=== PATIENT | female | born 1965 | race Caucasian/White ===

== ENCOUNTER → 2016-05-12 | Outpatient (CLI) | payer OTHER ==
[~2016-05-12] MED LIST: ALPR1TAB3 PO; FLUO40CA8 PO; HYDR-5688 PO; LEVO125T4 PO; LOSA50TA6 PO; TRAM-10 PO
--- NOTE | 2016-05-12 14:23 | DIAGNOSTIC IMAGING REPORT ---
MRI OF THE RIGHT KNEE WITHOUT CONTRAST CLINICAL HISTORY: Right knee pain. Evaluate for meniscal tear. COMPARISON STUDY: None TECHNIQUE: Utilizing a 1.5 Roxann magnet and dedicated coil, multiplanar, multiecho imaging of the right knee was performed without intravenous or intraarticular contrast. FINDINGS: Alignment of the right knee is anatomic. A moderate size joint effusion is noted with a small multiloculated popliteal cyst. There is no marrow replacement. No fracture is identified. The cruciate and collateral ligaments are intact. There is a oblique tear of the posterior horn of the medial meniscus. There is an additional suspected tear of the body of the medial meniscus along the tibial articular surface. There is abnormal signal within the anterior horn of the lateral meniscus with suspected extension to articular surface. This could reflect a lateral meniscal tear. There is mild chondrosis within the lateral compartment and moderate chondrosis within the patellofemoral compartment. This is most evident along the patellar cartilage. IMPRESSION: 1. Oblique tear of the posterior horn of the medial meniscus and an additional tear within the body of the medial meniscus. 2. Suspected tear of the anterior horn of the lateral meniscus. 3. Moderate chondrosis within the patellofemoral compartment and mild chondrosis within the lateral compartment. 4. Moderate size right knee joint effusion and small popliteal cyst. Electronically signed by: Shakir Hobbs M.D. 05/12/2016 2:22 PM Dictated Date/Time: 05/12/2016 2:15 PM
== END | disposition home or self-care (01) ==
LOC: C.MRIBC 13:00
PROVIDERS: ATTEND Orthopaedic Surgery
DX: S83.241A Other tear of medial meniscus, current injury, right knee, initial encounter (principal); X58.XXXA Exposure to other specified factors, initial encounter

== ENCOUNTER → 2016-06-09 | Outpatient (CLI) | payer OTHER | END | disposition home or self-care (01) | LOC: C.CPL 15:44 | PROVIDERS: ATTEND Orthopaedic Surgery | DX: Z01.810 Encounter for preprocedural cardiovascular examination (principal); Z01.812 Encounter for preprocedural laboratory examination; S83.241A Other tear of medial meniscus, current injury, right knee, initial encounter; X58.XXXA Exposure to other specified factors, initial encounter ==

== ENCOUNTER → 2016-06-17 | Day surgery (SDC) | payer OTHER ==
[2016-06-06 13:31] VITALS: Ht 152.4 cm; Wt 74.1 kg
[~2016-06-17] VITALS: Ht 152.4 cm; Wt 74.1 kg
[~2016-06-17] MED LIST changes: +ATROPINE SULFATE 0.1 MG/ML 5ML SYR IV PRN; +BUPIVACAINE 0.5 % 5 MG/1 ML PF 10ML VIAL ONE; +CEFAZOLIN 1000MG/55 ML D5W IV SCH; +DEXAMETHASONE SOD INJ 4 MG/ML VIAL ONE; +EpINEphrine INJ 1MG/ML AMP 1 MG/ML AMP ONE; +FENTANYL CITRATE INJ 50 MCG/1 ML 2 ML VIAL IV PRN; +FENTANYL CITRATE INJ 50 MCG/1 ML 2 ML VIAL ONE; +KETOROLAC TROMETHAMINE 30 MG/ML VIAL IV. PRN; +KETOROLAC TROMETHAMINE 30 MG/ML VIAL ONE; +LABETALOL HCL IV 5 MG/ML 20ML IV PRN; +LACTATED RINGER'S 1000ML 1,000 ML IV SCH; -LEVO125T4 PO; +LEVO125T5 PO; +LIDOCAINE HCL 2% 2 ML VIAL (20MG/ML) ONE; +MIDAZOLAM HCL 1 MG/ML 2ML VIAL ONE; +ONDANSETRON INJ 2 MG/ML 2 ML VIAL IV PRN; +ONDANSETRON INJ 2 MG/ML 2 ML VIAL ONE; +OXYCODONE/ACETAMINOPHEN 5-325 TAB ONE; +OXYCODONE/ACETAMINOPHEN 5-325 TAB PO PRN; +PROPOFOL IV EMULSION 10 MG/ML 20 ML VIAL IV ONE; +ROPIVACAINE 0.5% 5 MG/ML 30 ML VIAL ONE; +SODIUM CHLORIDE 0.9% 1000ML 1,000 ML IV SCH
--- NOTE | 2016-06-17 08:41 | History & Physical Bridge - SC ---
H&P Re-Evaluation Bridge Note: I have examined the patient, reviewed the History & Physical and in the interval since the performance of the History & Physical I have noted the following changes of clinical significance: No changes noted
--- NOTE | 2016-06-17 09:42 | [facility] Post Operative Brief Note ---
Immediate Operative Summary Operative Date Jun 17, 2016. Pre-Operative Diagnosis Right Knee Medial Meniscal Tear Post-Operative Diagnosis Same Procedure(s) Performed Right Knee Arthroscopy, Partial Medial Meniscectomy, Chondroplasty of the patella Surgeon Dr. Owens Personnel Adviser Surgeon(s) Pradeep Kevin PA-C Estimated Blood Loss None Findings ABOVE Specimens None Drains NONE Anesthesia LMA Complication(s) None Disposition Recovery Room / PACU
--- NOTE | 2016-06-17 09:52 | Discharge Instructions-SurgCtr ---
Discharge Instructions Date of Service Jun 17, 2016. Visit Reason for Visit: Right Knee Medial Meniscus Tear Discharge Discharge Diagnosis / Problem: SAME ABOVE Discharge Goals Goal(s): Decrease discomfort, Improve function Activity Recommendations Activity Limitations: as noted below Lifting Limitations: gradually increase as tolerated Exercise/Sports Limitations: until after follow-up appointment Shower/Bathe: tomorrow Weightbearing Status: Right weightbearing (as tolerated) Anesthesia . Post Anesthesia Instructions: If you have had General Anesthesia or IV Sedation: * Do not drive today. * Resume driving when surgeon permits. * Do not make important decisions or sign legal documents today. * Call surgeon for: 1. Temperature elevations greater than 101 degrees F. 2. Uncontrollable pain. 3. Excessive bleeding. 4. Persistent nausea and vomiting. 5. Medication intolerance (nausea, vomiting or rash). * For nausea and vomiting use only clear liquids such as: tea, soda, bouillon until nausea subsides, then gradually increase diet as tolerated. * If you have any concerns or questions, call your surgeon's office. If physician is unavailable and it is an emergency, call 911 or go to the nearest emergency room. . Diet Recommendations Home Diet: resume previous diet Procedures Procedures Performed: Right Knee Arthroscopy, Partial Medial Meniscectomy, Chondroplasty of the patella Pending Studies Studies pending at discharge: no Medical Emergencies . Who to Call and When: Medical Emergencies: If at any time you feel your situation is an emergency, please call 911 immediately. . Non-Emergent Contact Non-Emergency issues call your: Primary Care Provider . . "Provider Documentation" section prepared by Axel Kevin.
--- NOTE | 2016-06-17 10:09 | OPERATIVE REPORT ---
DATE OF OPERATION: 06/17/2016 PREOPERATIVE DIAGNOSIS: Medial meniscus tear, right knee. POSTOPERATIVE DIAGNOSES: 1. Flap tear posterior horn of the medial meniscus. 2. Fraying of the anterior horn of the lateral meniscus. 3. Grade 2-3 articular changes underneath surface of the patella. PROCEDURE: 1. Right knee arthroscopy. 2. Partial medial meniscectomy. 3. Chondroplasty undersurface of patella. SURGEON: Dr. Owens. PRE CODER: Axel Kevin PA-C. ANESTHESIOLOGIST: Dr. Purvis. ANESTHESIA: LMA. DRAINS: None. COMPLICATIONS: None. CONDITION: The patient tolerated the procedure well and returned to the recovery room in apparent satisfactory condition. INDICATIONS FOR SURGERY: Maranda is a 50-year-old female who has had increasing pain and discomfort of her knee consistent with medial meniscus tear per history, examination and MRI. Went over treatment options and elected to go ahead and proceed with knee arthroscopy. The procedure, expected outcomes and side effects were all explained in detail. OPERATION AND FINDINGS: PROCEDURE: The patient was taken to the OR at which time she was placed supine on the operating table and put to sleep by anesthesia department. Examination of right knee was performed. Ligamentous hackett stable. Went ahead and prepped and draped in usual sterile fashion. We began arthroscopic examination in the anteromedial and anterolateral portals. We found a flap tear of the posterior horn of the medial meniscus. We came in with upbiting scissors and full range resector and trimmed it back to a stable rim. The articular surface was in good shape. ACL was fine. There was fraying of the anterior horn of the lateral meniscus. I came in and did light debridement. It did not have to do full meniscectomy there, just mostly took away some tissue that was fibrillated in this area. The articular surface and remaining part of the meniscus was in good shape. The patellofemoral joint, we found a erosion of the posterior aspect of the patellar surface, grade 3 almost like crabmeat appearance. We came in with resector and smoothed it down. There was some synovitis in the knee joint, we shaved that also. The knee then was copiously irrigated. All cannulas were removed. Portals closed with 4-0 nylon sutures. 30 mL of ropivacaine, 10 mg of Toradol, 1 mL epinephrine was placed in the knee joint. Placed a sterile dressing of Xeroform, 4 x 4, ABD, Sof-Rol, and Ahsan bandage and returned back to recovery room in apparent satisfactory condition. SURGICAL FINDINGS: 1. Flap tear posterior horn of the medial meniscus. 2. Fraying to the anterior horn of the lateral meniscus. 3. Grade 2-3 articular changes underneath surface of the patella. I attest to the content of the Intraoperative Record and any orders documented therein. Any exceptio ns are noted below.
[2016-06-17 10:42] VITALS: TEMP 36.6
--- NOTE | 2016-06-17 11:16 | Anesthesia Progress Nt - [facility] ---
Anesthesia Post Op Note Date & Time Jun 17, 2016 at 11:16 Vital Signs Pain Intensity: 4.0 Vital Signs Past 12 Hours Date Time Temp Pulse Resp B/P Pulse Ox O2 Delivery O2 Flow Rate FiO2 06/17/16 10:42 36.6 72 16 152/86 98 Room Air 06/17/16 10:30 117/91 06/17/16 10:29 71 21 97 06/17/16 10:29 69 21 06/17/16 10:25 112/70 06/17/16 10:25 37.0 98 Room Air 06/17/16 10:24 63 17 06/17/16 10:24 64 17 94 06/17/16 10:20 122/75 06/17/16 10:19 68 13 96 06/17/16 10:19 68 13 06/17/16 10:15 116/75 06/17/16 10:14 75 14 06/17/16 10:14 74 14 94 06/17/16 10:10 118/75 06/17/16 10:09 77 06/17/16 10:09 77 95 06/17/16 10:05 134/87 06/17/16 10:04 78 21 06/17/16 10:04 79 21 100 06/17/16 10:00 137/78 06/17/16 09:59 86 06/17/16 09:59 86 98 06/17/16 09:56 133/75 06/17/16 09:54 79 19 06/17/16 09:54 78 19 97 06/17/16 09:51 144/92 06/17/16 09:50 36.3 87 16 144/92 93 Mask 6 06/17/16 08:44 36.7 68 16 127/90 95 Room Air Notes Mental Status: alert / awake / arousable, participated in evaluation Pt Amnestic to Procedure: Yes Nausea / Vomiting: adequately controlled Pain: adequately controlled Airway Patency, RR, SpO2: stable & adequate BP & HR: stable & adequate Hydration State: stable & adequate Anesthetic Complications: no major complications apparent
[2016-06-17 11:17] VITALS: BP 146/74; PULSE 78; O2SAT 97
--- NOTE | 2016-06-18 09:59 | EDITING REQUIRED CODING QUERY ---
MENISCUS TEAR To promote full compliance with coding requirements relating to patient care physician participation is requested in all cases of manager regional uncertainty. Please assist us with the question(s) below: Please specify the type of Meniscus Tear by placing an "X" within the parenthesis (). If other please document type. ( x) Current Injury ( ) Old Injury ( ) Other: (Please Specify) Thank you Nay Coon
== END | disposition home or self-care (01) ==
LOC: X.SURG 08:31
PROVIDERS: ATTEND Orthopaedic Surgery
DX: S83.241A Other tear of medial meniscus, current injury, right knee, initial encounter (principal); M23.341 Other meniscus derangements, anterior horn of lateral meniscus, right knee; M24.10 Other articular cartilage disorders, unspecified site; X58.XXXA Exposure to other specified factors, initial encounter; I10 Essential (primary) hypertension; Z90.710 Acquired absence of both cervix and uterus; Z98.890 Other specified postprocedural states; E03.9 Hypothyroidism, unspecified; Z79.899 Other long term (current) drug therapy; Z68.32 Body mass index [BMI] 32.0-32.9, adult

== ENCOUNTER 2016-06-27 13:11 | Emergency (ER) | payer OTHER ==
[~2016-06-27] VITALS: Ht 152.4 cm; Wt 80.0 kg
[~2016-06-27 13:11] MED LIST changes: -ALPR1TAB3 PO; -ATROPINE SULFATE 0.1 MG/ML 5ML SYR IV PRN; -BUPIVACAINE 0.5 % 5 MG/1 ML PF 10ML VIAL ONE; -CEFAZOLIN 1000MG/55 ML D5W IV SCH; -DEXAMETHASONE SOD INJ 4 MG/ML VIAL ONE; -EpINEphrine INJ 1MG/ML AMP 1 MG/ML AMP ONE; -FENTANYL CITRATE INJ 50 MCG/1 ML 2 ML VIAL IV PRN; -FENTANYL CITRATE INJ 50 MCG/1 ML 2 ML VIAL ONE; -HYDR-5688 PO; -KETOROLAC TROMETHAMINE 30 MG/ML VIAL IV. PRN; -KETOROLAC TROMETHAMINE 30 MG/ML VIAL ONE; -LABETALOL HCL IV 5 MG/ML 20ML IV PRN; -LACTATED RINGER'S 1000ML 1,000 ML IV SCH; -LIDOCAINE HCL 2% 2 ML VIAL (20MG/ML) ONE; -MIDAZOLAM HCL 1 MG/ML 2ML VIAL ONE; -ONDANSETRON INJ 2 MG/ML 2 ML VIAL IV PRN; -ONDANSETRON INJ 2 MG/ML 2 ML VIAL ONE; -OXYCODONE/ACETAMINOPHEN 5-325 TAB ONE; -OXYCODONE/ACETAMINOPHEN 5-325 TAB PO PRN; -PROPOFOL IV EMULSION 10 MG/ML 20 ML VIAL IV ONE; -ROPIVACAINE 0.5% 5 MG/ML 30 ML VIAL ONE; -SODIUM CHLORIDE 0.9% 1000ML 1,000 ML IV SCH
[2016-06-27 13:17] VITALS: TEMP 36.7; O2SAT 99; Ht 152.4 cm; Wt 80.0 kg
[2016-06-27] MEDS ORDERED: ONDANSETRON 4MG OD TAB PO ONE (14:00)
[2016-06-27] MEDS ORDERED: MoRPHine SULFATE 10 MG/ML CARP/VIAL IM STA (14:00)
[2016-06-27] MEDS ORDERED: ALPR1TAB3 PO (14:08)
[2016-06-27 14:10] VITALS: BP 116/74; PULSE 70
--- NOTE | 2016-06-27 15:07 | EMERGENCY ROOM VISIT NOTE ---
History First contact with patient: 13:30 Chief Complaint: KNEEPAIN Stated Complaint: ACUTE KNEE PAIN History of Present Illness The patient is a 51 year old female who presents to the Emergency Room with complaints of persistent right knee pain after having a right knee arthroscopy performed last Thursday, or 10 days ago, by Dr. Owens. The patient reports that she was initially provided a prescription for hydrocodone. When she ran out of her medication and had persistent pain, she was then prescribed Ultram. The patient reports that the Ultram is not helping. She denies any increasing swelling, bruising or redness around the knee, fight or leg. Her pain is only worsened with movement or ambulation. She does have crutches at home, but has not been using them all the time. The patient reports that she is upset with Dr. Owens, and has filed a complaint because he is not adequately managing her pain. When asked if she has had any other recent prescription pain medications , she denies. The patient reports that she does have a history of chronic abdominal/pelvic pain secondary to adhesions and endometriosis, and is also under the management of Dr. Julio, ASSOCIATE PROFESSOR OF THEOLOGY at [facility]. The patient reports that she usually receives prescriptions from his office as well , but does not have any current medications until she follows up with them next week. The patient denies any current pelvic pain, hip pain or back pain. She rates her discomfort a 10 out of 10. Review of Systems 10 system review was performed and was negative except for pertinent positives and negatives as indicated in history of present illness Past Medical/Surgical History Medical Problems: (1) Abdominal pain in female patient (2) Alcohol abuse (3) Alcohol abuse (4) Anxiety (5) Clostridium difficile infection (6) Constipation (7) Depression (8) Hematochezia (9) History of - tubal ligation (10) Hyperthyroidism (11) Hypothyroidism (12) Hysterectomy (13) Laceration of toe of left foot (14) Mood disorder (15) Peritoneal adhesion (16) Plantar fasciitis Surgical Problems: (1) H/O section (2) H/O foot surgery (3) H/O: hysterectomy Social History Problems: (1) Alcohol abuse Family History FH: cancer FH: gallbladder disease Social History Smoking Status: Current Some Day Smoker Alcohol Use: occasionally Drug Use: none Marital Status: single Housing Status: lives alone Occupation Status: employed Current/Historical Medications Scheduled Alprazolam (Xanax), 1 MG PO UD Fluoxetine Hcl (Prozac), 2 CAP PO QAM Levothyroxine Sodium (Levothyroxine Sodium), 2 TAB PO QAM Losartan Potassium (Cozaar), 50 MG PO QAM Allergies Coded Allergies: Amphetamine (Verified Allergy, Intermediate, HIVES, FACIAL SWELLING., ) Dextroamphetamine (Verified Allergy, Intermediate, HIVES, FACIAL SWELLING. , 06/27/16) Nitrofurantoin (Verified Allergy, Intermediate, CHEST PAIN, 06/27/16) Physical Exam Vital Signs Date Time Temp Pulse Resp B/P Pulse Ox O2 Delivery O2 Flow Rate FiO2 06/27/16 14:10 70 18 116/74 06/27/16 13:17 36.7 96 18 167/107 99 Room Air Pain Rating (0-10): 8.0 Physical Exam CONSTITUTIONAL: Healthy and well nourished. Alert and oriented X 3 with positive affect. Patient does not appear in any significant distress on exam. HEENT: Normocephalic, atraumatic. Pupils equal, round and reactive. NECK: Full active range of motion without discomfort. MUSCULOSKELETAL: Examination of the right knee shows healing surgical incisions without any peripheral erythema. There is no appreciable joint effusion. There is mild edema over the front of the knee. She has no tenderness to palpation of the popliteal space, or palpable popliteal masses. She has no other tenderness to palpation of the posterior biceps muscles or gastrocnemius muscles. Pedal pulses are intact. INTEGUMENTARY: No rash or other significant dermatologic conditions noted. NEUROLOGIC: No focal neurologic deficits noted. Right lower extremity is sensory intact. Medical Decision & Procedures Medications Administered Medications (Trade) Dose Ordered Sig/Nery Route Start Time Stop Time Status Last Admin Dose Admin Morphine Sulfate (MoRPHine SULFATE INJ) 10 mg NOW STAT IM 06/27/16 14:00 06/27/16 14:01 DC 06/27/16 14:21 10 MG Ondansetron HCl (Zofran Odt) 4 mg ONE ONCE PO 06/27/16 14:00 06/27/16 14:01 DC 06/27/16 14:14 4 MG ED Course Patient history and physical exam were performed. Nurse's notes were reviewed. Vital signs were reviewed and were normal. Review of the [place] Prescription Drug monitoring Program shows that the patient has an extensive history of multiple and monthly prescriptions. Her last prescription for hydrocodone was filled on 06/17/16, and prescribed by a physician special education assistant in the orthopedic office. However, the patient also filled a prescription for 60 [place] 5/325 one 05/30/16. The patient otherwise has had multiple prescription fills over the past year, with 46 prescriptions from 8 different providers and 8 different pharmacies. I explained to the patient that I was willing to provide pain management while in the emergency department. She was in agreement. Her father was driving today. The patient was administered morphine 10 mg IM and Zofran 4 mg ODT. I explained to the patient that I would not provide any further narcotic prescriptions. I explained that the emergency department is not responsible for postoperative pain management. Although she disagrees with her surgeon's pain management, I will not override his decisions. The patient also made several mentions about chronic pelvic and abdominal pain, and was actually discussing her chronic pain problems more so than her postoperative knee pain. She reports that she does not have any current prescriptions filled by her OB/ DYNAMITER, and wanted to know if I could at least provide her with a few days of a prescription. I explained that I was not willing to do so. I did suggest that she call her family doctor to discuss pain management options as it appears that she did receive a prescription from her PCPs office. The patient had no further comments. She was happy with plan of care, and reported that she would continue follow-up with her family doctor, stating that she likely would not go back to see Dr. Owens. Given the patient's prior history of chronic narcotic pain management, I do feel that she needs to be watched closely for future visits and possible narcotic seeking behavior. Impression Primary Impression: Postoperative pain of right knee Departure Information Dispostion Home / Self-Care Forms HOME CARE DOCUMENTATION FORM, IMPORTANT VISIT INFORMATION Patient Instructions [facility] [employer] [facility] Additional Instructions Continue to intermittently apply ice to the knee. Use your crutches for best pain relief. Ibuprofen or Tylenol as needed for baseline pain relief Continue with your current Ultram prescription if needed for worse pain. You need to discuss further pain management with your family doctor or orthopedic surgeon. The emergency department does not provide postoperative or chronic pain management.
== END 2016-06-27 14:38 | disposition home or self-care (01) ==
LOC: C.EDB 13:12 → C.EDD 14:38
DX: M25.561 Pain in right knee (principal); G89.18 Other acute postprocedural pain; F41.9 Anxiety disorder, unspecified; F32.9 Major depressive disorder, single episode, unspecified; Z98.51 Tubal ligation status; E05.90 Thyrotoxicosis, unspecified without thyrotoxic crisis or storm; E03.9 Hypothyroidism, unspecified; Z90.710 Acquired absence of both cervix and uterus; Z80.9 Family history of malignant neoplasm, unspecified; F17.210 Nicotine dependence, cigarettes, uncomplicated; Z79.899 Other long term (current) drug therapy

== ENCOUNTER → 2016-09-18 | Outpatient (CLI) | payer OTHER ==
[~2016-09-18] MED LIST changes: +ALPR1TAB3 PO; +LEVO125T4 PO; -LEVO125T5 PO; -TRAM-10 PO
[2016-09-18 13:19] LABS: BASO % 0.2 %; BASO ABS # 0.01 K/uL (0-0.2); COMPLETE YES; HEMATOCRIT 38.4 % (37-47); IG% 0.2 %; LYMPH % 39.1 %; LYMPH ABS # 2.24 K/uL (1.2-3.4); MEAN CELL VOLUME 95.5 fL (80-100); MEAN CORPUSCULAR HEMOGLOBIN 32.3 pg (25-34); MEAN CORPUSCULAR HGB CONC 33.9 g/dl (32-36); MONO % 5.9 %; NEUT % 54.6 %; PLATELET COUNT 320 K/uL (130-400); RED BLOOD COUNT 4.02 M/uL (4.2-5.4); WHITE BLOOD COUNT 5.73 K/uL (4.8-10.8)
[2016-09-18 13:42] LABS: ALT/SGPT 29 U/L (12-78); AST/SGOT 16 U/L (15-37); BLOOD UREA NITROGEN 18 mg/dl (7-18); BUN/CREATININE RATIO 23.6 (10-20); CALCIUM 9.6 mg/dl (8.5-10.1); CARBON DIOXIDE 28 mmol/L (21-32); CHLORIDE 104 mmol/L (98-107); CHOLESTEROL 224 mg/dl (0-200); CHOLESTEROL/HDL RATIO 3.8; CREATININE 0.76 mg/dl (0.60-1.20); GLUCOSE 87 mg/dl (70-99); HDL CHOLESTEROL 59 mg/dl; LDL CHOLESTEROL CALCULATED 120 mg/dl; POTASSIUM 4.2 mmol/L (3.5-5.1); SODIUM 138 mmol/L (136-145); TRIGLYCERIDES 227 mg/dl (0-150); VERY LOW DENSITY LIPOPROT CALC 45 mg/dl
[2016-09-18 13:52] LABS: ALB/GLOB RATIO 1.1 (0.9-2); ALKALINE PHOSPHATASE 78 U/L (45-117); THYROID STIMULATING HORMONE 0.341 uIu/ml (0.300-4.500)
== END | disposition home or self-care (01) ==
LOC: C.LAB 12:39
PROVIDERS: ATTEND Nurse Practitioner Adult Health
DX: Z00.00 Encounter for general adult medical examination without abnormal findings (principal); I10 Essential (primary) hypertension; E03.9 Hypothyroidism, unspecified

== ENCOUNTER → 2016-12-24 | Outpatient (CLI) | payer OTHER ==
--- NOTE | 2016-12-24 16:00 | DIAGNOSTIC IMAGING REPORT ---
LUMBAR SPINE 7 VIEWS with flexion and extension HISTORY: M54.5 LOW BACK PAIN COMPARISON: Lumbar spine 08/15/2014. FINDINGS: There is no fracture. No subluxation. The sacrum is intact. Mild facet degenerative changes within the lower lumbar spine, unchanged. Mild disc space narrowing at L3-L4, L4-L5, and L5-S1 is also unchanged. The alignment remains intact throughout flexion and extension. IMPRESSION: 1. Mild degenerative changes within the mid to lower lumbar spine as described above. 2. The alignment remains intact throughout flexion and extension. Electronically signed by: Marco Jordan M.D. 12/24/2016 3:58 PM Dictated Date/Time: 12/24/2016 3:57 PM
== END | disposition home or self-care (01) ==
LOC: C.RAD 15:26
PROVIDERS: ATTEND Nurse Practitioner Family
DX: M54.5 Low back pain (principal)

== ENCOUNTER → 2017-02-05 | Outpatient (CLI) | payer OTHER ==
[~2017-02-05] MED LIST changes: -LEVO125T4 PO; +LEVO125T5 PO
[2017-02-05 13:58] LABS: BLOOD UREA NITROGEN 18 mg/dl (7-18); BUN/CREATININE RATIO 20.4 (10-20); CARBON DIOXIDE 30 mmol/L (21-32); CHLORIDE 100 mmol/L (98-107); GLUCOSE 78 mg/dl (70-99); POTASSIUM 4.3 mmol/L (3.5-5.1); SODIUM 138 mmol/L (136-145)
== END | disposition home or self-care (01) ==
LOC: C.LAB 12:16
PROVIDERS: ATTEND Nurse Practitioner Adult Health
DX: I10 Essential (primary) hypertension (principal)

== ENCOUNTER 2017-03-24 21:49 | Emergency (ER) | payer OTHER ==
[~2017-03-24] VITALS: Ht 152.4 cm; Wt 76.4 kg
[2017-03-24 22:03] VITALS: TEMP 37; Ht 152.4 cm; Wt 76.4 kg
[2017-03-24] MEDS ORDERED: ONDANSETRON INJ 2 MG/ML 2 ML VIAL IV STA (22:20)
--- NOTE | 2017-03-24 22:20 | EMERGENCY ROOM VISIT NOTE ---
History Report prepared by Roberto: Amberly Vivas Under the Supervision of: Dr. Mario Chaves D.O. First contact with patient: 21:53 Chief Complaint: OVERDOSE (INTENTIONAL) Stated Complaint: overdose History of Present Illness The patient is a 51 year old female who presents to the Emergency Room with complaints of an episode of a intentional overdose occurring about 40 minutes ago. The patient states she has been "coming off" of her Xanax and has not " been doing well". She states she had an anxiety attack this afternoon which turned into a "OCD outbreak". The patient then had a verbal argument with her son about her house being a mess. This argument lead her to take about twenty 2mg Valium pills, during the argument, about 40 minutes ago. She reports nausea but denies any vomiting. Presently, she denies any suicidal thoughts. She notes drinking three alcoholic beverages about five hours ago. The patient was admitted to the hospital previously for mental health reasons. Source of History: patient Onset: 40 minutes ago Position: other (generalized) Quality: other (overdose) Timing: other (episode) Associated Symptoms: + nausea, No vomiting Review of Systems See HPI for pertinent positives & negatives. A total of 10 systems reviewed and were otherwise negative. 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 (16) Plantar fasciitis Surgical Problems: (1) H/O section (2) H/O foot surgery (3) H/O: hysterectomy Social History Problems: (1) Alcohol abuse Family History FH: cancer FH: gallbladder disease Social History Smoking Status: Current Some Day Smoker Alcohol Use: occasionally Drug Use: none Marital Status: single Housing Status: lives alone Occupation Status: employed Current/Historical Medications Scheduled Fluoxetine Hcl (Prozac), 80 MG PO QAM Hctz/Lisinopril (Lisinopril/Hctz 10/12.5 Mg), Unknown Dose PO DAILY Levothyroxine Sodium (Levothyroxine Sodium), 250 MG PO QAM Oxycodone/Acetaminophen 10MG/325MG (Percocet 10MG/325MG), 1 TAB PO QID Scheduled PRN Zolpidem Tartrate (Ambien), 10 MG PO HS PRN for Sleep Allergies Coded Allergies: Amphetamine (Verified Allergy, Intermediate, HIVES, FACIAL SWELLING., ) Dextroamphetamine (Verified Allergy, Intermediate, HIVES, FACIAL SWELLING. , 03/24/17) Nitrofurantoin (Verified Allergy, Intermediate, CHEST PAIN, 03/24/17) Physical Exam Vital Signs Date Time Temp Pulse Resp B/P (MAP) Pulse Ox O2 Delivery O2 Flow Rate FiO2 03/25/17 01:59 80 131/89 95 03/24/17 22:34 95 Room Air 03/24/17 22:30 82 18 120/73 94 Room Air 03/24/17 22:15 75 03/24/17 22:03 94 Room Air 03/24/17 22:03 37.0 91 18 142/91 94 Room Air Physical Exam GENERAL: Patient is awake and answers questions appropriately. Falls asleep easily when not verbally prompted. EYES: The conjunctivae are clear. The pupils are round and reactive. EARS, NOSE, MOUTH AND THROAT: The nose is without any evidence of any deformity. Mucous membranes are moist tongue is midline NECK: The neck is nontender and supple. RESPIRATORY: Normal respiratory effort is noted there is no evidence of wheezing rhonchi or rales CARDIOVASCULAR: Regular rate and rhythm noted there no murmurs rubs or gallops normal S1 normal S2 GASTROINTESTINAL: The abdomen is soft. Bowel sounds are present in all quadrants. Abdomen is nontender MUSCULOSKELETAL/EXTREMITIES: There is no evidence of gross deformity full range of motion is noted in the hips and shoulders SKIN: There is no obvious evidence of any rash. There are no petechiae, pallor or cyanosis noted. NEUROLOGIC: Patient is awake alert and oriented person, time, place, situation. Strength symmetric. PSYCH: Currently denying suicidal or homicidal ideation. Admits to significant stressors and argument with family members which lead to taking the medication to calm her down Medical Decision & Procedures ER Provider Diagnostic Interpretation: Radiology results as stated below per my review and radiologist interpretation: CHEST ONE VIEW PORTABLE FINDINGS: Cardiomediastinal and hilar silhouettes are within normal limits. No pneumothorax, pleural effusion, focal airspace consolidation or overt pulmonary edema. Bones of the chest appear grossly intact. IMPRESSION: No acute process. The above report was generated using voice recognition software. It may contain grammatical, syntax or spelling errors. Electronically signed by: Attila Vela M.D. Laboratory Results 03/24/17 22:15 Red Blood Count 3.93, Mean Corpuscular Volume 97.2, Mean Corpuscular Hemoglobin 33.8, Mean Corpuscular Hemoglobin Concent 34.8, Mean Platelet Volume 9.7, Neutrophils (%) (Auto) 46.6, Lymphocytes (%) (Auto) 46.5, Monocytes (%) (Auto) 6.5, Eosinophils (%) (Auto) 0.0, Basophils (%) (Auto) 0.2, Neutrophils # (Auto) 2.44, Lymphocytes # (Auto) 2.43, Monocytes # (Auto) 0.34, Eosinophils # (Auto) 0.00, Basophils # (Auto) 0.01 03/24/17 22:15 Test 03/24/17 21:57 03/24/17 22:15 Urine Color YELLOW Urine Appearance CLEAR (CLEAR) Urine pH 5.0 (4.5-7.5) Urine Specific [place] 1.014 (1.000-1.030) Urine Protein NEG (NEG) Urine Glucose (UA) NEG (NEG) Urine Ketones NEG (NEG) Urine Occult Blood NEG (NEG) Urine Nitrite NEG (NEG) Urine Bilirubin NEG (NEG) Urine Urobilinogen NEG (NEG) Urine Leukocyte Esterase TRACE (NEG) Urine WBC (Auto) 1-5 /hpf (0-5) Urine RBC (Auto) 0-4 /hpf (0-4) Urine Hyaline Casts (Auto) 0 /lpf (0-5) Urine Epithelial Cells (Auto) 0-5 /lpf (0-5) Urine Bacteria (Auto) NEG (NEG) Urine Opiates Screen NEG (NEG) Urine Methadone, Qualitative NEG (NEG) Urine Barbiturates NEG (NEG) Urine Phencyclidine (PCP) Level NEG (NEG) Ur Amphetamine/Methamphetamine NEG (NEG) MDMA (Ecstasy) Screen NEG (NEG) Urine Benzodiazepines Screen POS (NEG) Urine Cocaine Metabolite NEG (NEG) Urine Marijuana (THC) NEG (NEG) White Blood Count 5.23 K/uL (4.8-10.8) Red Blood Count 3.93 M/uL (4.2-5.4) Hemoglobin 13.3 g/dL (12.0-16.0) Hematocrit 38.2 % (37-47) Mean Corpuscular Volume 97.2 fL (80-100) Mean Corpuscular Hemoglobin 33.8 pg (25-34) Mean Corpuscular Hemoglobin Concent 34.8 g/dl (32-36) Platelet Count 366 K/uL (130-400) Mean Platelet Volume 9.7 fL (7.4-10.4) Neutrophils (%) (Auto) 46.6 % Lymphocytes (%) (Auto) 46.5 % Monocytes (%) (Auto) 6.5 % Eosinophils (%) (Auto) 0.0 % Basophils (%) (Auto) 0.2 % Neutrophils # (Auto) 2.44 K/uL (1.4-6.5) Lymphocytes # (Auto) 2.43 K/uL (1.2-3.4) Monocytes # (Auto) 0.34 K/uL (0.11-0.59) Eosinophils # (Auto) 0.00 K/uL (0-0.5) Basophils # (Auto) 0.01 K/uL (0-0.2) RDW Standard Deviation 46.5 fL (36.4-46.3) RDW Coefficient of Variation 13.1 % (11.5-14.5) Immature Granulocyte % (Auto) 0.2 % Immature Granulocyte # (Auto) 0.01 K/uL (0.00-0.02) Prothrombin Time 9.0 SECONDS (9.0-12.0) Prothromb Time International Ratio 0.9 (0.9-1.1) Activated Partial Thromboplast Time 26.9 SECONDS (21.0-31.0) Partial Thromboplastin Ratio 1.0 Anion Gap 9.0 mmol/L (3-11) Est Creatinine Clear Calc Drug Dose 73.2 ml/min Estimated GFR () 93.9 Estimated GFR (Non- 81.0 BUN/Creatinine Ratio 27.8 (10-20) Calcium Level 8.5 mg/dl (8.5-10.1) Total Bilirubin 0.2 mg/dl (0.2-1) Direct Bilirubin mg/dl (0-0.2) Aspartate Amino Transf (AST/SGOT) 17 U/L (15-37) Alanine Aminotransferase (ALT/SGPT) 27 U/L (12-78) Alkaline Phosphatase 74 U/L (45-117) Total Creatine Kinase 83 U/L (26-192) Troponin I < 0.015 ng/ml (0-0.045) Total Protein 7.6 gm/dl (6.4-8.2) Albumin 3.7 gm/dl (3.4-5.0) Lipase 295 U/L (73-393) Human Chorionic Gonadotropin, Qual NEG (NEG) Chemistry Specimen Hemolysis Salicylates Level < 1.7 mg/dl (2.8-20) Acetaminophen Level < 2 ug/ml (10-30) Ethyl Alcohol mg/dL 137.0 mg/dl (0-3) Laboratory results per my review. Medications Administered Medications (Trade) Dose Ordered Sig/Nery Route Start Time Stop Time Status Last Admin Dose Admin Ondansetron HCl (Zofran Inj) 4 mg NOW STAT IV 03/24/17 22:20 03/24/17 22:21 DC 03/24/17 22:25 4 MG ED Course 2157: The patient was evaluated in room A8. A complete history and physical examination were performed. 2220: Ordered Zofran Inj 4 mg IV. 0030: The patient was signed out to Dr. Gómez at the change of shifts. Medical Decision Differential diagnosis: Etiologies such as toxicologic, infection, hypoglycemia, electrolyte abnormalities, cardiac sources, intracerebral event, neurologic, as well as others were entertained. Nursing notes reviewed. Additional history is obtained from the prehospital personnel. The patient is a 51-year-old female who presented to the emergency department after taking multiple doses of her own Valium and drinking alcohol. The patient states she had very severe anxiety after fighting with family members. The patient arrived at the emergency department after family members called the police. At this time the patient is currently denying any suicidal or homicidal ideation. She was reevaluated multiple times. I discussed her condition with the emergency Department mental health pillowcase turner. She was observed until she was no longer clinically intoxicated and then evaluated by the mental health pillowcase turner. She was signed out to the night physician. Please see his note for final disposition and continuation of care. At this time the patient does not appear to meet any criteria for involuntary admission. She is very agreeable to evaluation at this time. Medication Reconcilliation Current Medication List: was personally reviewed by me Blood Pressure Screening Patient's blood pressure: Normal blood pressure Impression Primary Impression: Acute alcohol intoxication Additional Impressions: Valium overdose Anxiety Scribe Attestation The scribe's documentation has been prepared under my direction and personally reviewed by me in its entirety. I confirm that the note above accurately reflects all work, treatment, procedures, and medical decision making performed by me. Departure Information Referrals Lorena Gutierrez C.R.N.P. (PCP) Patient Instructions My [facility] Problem Qualifiers Primary Impression: Acute alcohol intoxication Complication of substance-induced condition: uncomplicated Qualified Codes: F10.929 - Alcohol use, unspecified with intoxication, unspecified Additional Impressions: Valium overdose Encounter type: initial encounter Injury intent: accidental or unintentional Qualified Codes: T42.4X1A - Poisoning by benzodiazepines, accidental (unintentional), initial encounter
--- NOTE | 2017-03-24 22:23 | DIAGNOSTIC IMAGING REPORT ---
CHEST ONE VIEW PORTABLE HISTORY: 51 years-old Female Overdose acute drug overdose COMPARISON: Acute abdominal series radiographs 11/10/2015 TECHNIQUE: Portable AP view of the chest FINDINGS: Cardiomediastinal and hilar silhouettes are within normal limits. No pneumothorax, pleural effusion, focal airspace consolidation or overt pulmonary edema. Bones of the chest appear grossly intact. IMPRESSION: No acute process. The above report was generated using voice recognition software. It may contain grammatical, syntax or spelling errors. Electronically signed by: Attila Vela M.D. 03/24/2017 10:22 PM Dictated Date/Time: 03/24/2017 10:21 PM
[2017-03-24 22:34] VITALS: O2SAT 95
[2017-03-24 22:36] LABS: BASO % 0.2 %; BASO ABS # 0.01 K/uL (0-0.2); HEMATOCRIT 38.2 % (37-47); HEMOGLOBIN 13.3 g/dL (12.0-16.0); IG# 0.01 K/uL (0.00-0.02); LYMPH % 46.5 %; LYMPH ABS # 2.43 K/uL (1.2-3.4); MEAN CELL VOLUME 97.2 fL (80-100); MEAN CORPUSCULAR HEMOGLOBIN 33.8 pg (25-34); MEAN CORPUSCULAR HGB CONC 34.8 g/dl (32-36); MEAN PLATELET VOLUME 9.7 fL (7.4-10.4); MONO % 6.5 %; MONO ABS # 0.34 K/uL (0.11-0.59); NEUT % 46.6 %; NEUT ABS # 2.44 K/uL (1.4-6.5); PLATELET COUNT 366 K/uL (130-400); RED CELL DISTRIBUTION WIDTH CV 13.1 % (11.5-14.5); RED CELL DISTRIBUTION WIDTH SD 46.5 fL (36.4-46.3); WHITE BLOOD COUNT 5.23 K/uL (4.8-10.8)
[2017-03-24 22:54] LABS: INR 0.9 (0.9-1.1); PTT PATIENT 26.9 SECONDS (21.0-31.0)
[2017-03-24] MEDS ORDERED: LSN/10125 PO (23:11)
[2017-03-24] MEDS ORDERED: ZOLP10TA PO (23:11)
[2017-03-24] MEDS ORDERED: OXYC-594 PO (23:11)
[2017-03-24 23:26] LABS: ALBUMIN 3.7 gm/dl (3.4-5.0); ALKALINE PHOSPHATASE 74 U/L (45-117); ALT/SGPT 27 U/L (12-78); AST/SGOT 17 U/L (15-37); BLOOD UREA NITROGEN 23 mg/dl (7-18); CALCIUM 8.5 mg/dl (8.5-10.1); CARBON DIOXIDE 23 mmol/L (21-32); CREATININE 0.84 mg/dl (0.60-1.20); GLUCOSE 83 mg/dl (70-99); LIPASE 295 U/L (73-393); POTASSIUM 3.7 mmol/L (3.5-5.1); SODIUM 142 mmol/L (136-145); TOTAL PROTEIN 7.6 gm/dl (6.4-8.2)
[2017-03-25 01:59] VITALS: BP 131/89; PULSE 80; O2SAT 95
--- NOTE | 2017-03-25 07:42 | EMERGENCY ROOM VISIT NOTE ---
ED Visit Note First contact with patient: 01:29 51 yr old female arrives for evaluations of acute anxiety episode which lead to etoh use and Valium overuse. States she was not trying to kill self and was just upset. She has been evaluated by Dr Chaves who felt similarly as well as mental health who feel she is safe for outpatient. Patient stable, feeling well and wanting to go home. She feels safe at home and states she is not a risk to herself. She is sober, stable, and A&O in no distress. She is aware she can return at any time. She has outpatient follow up planned and mental health will touch base.
== END 2017-03-25 02:00 | disposition home or self-care (01) ==
LOC: EDBD 21:49 → C.EDA 21:51
DX: F10.929 Alcohol use, unspecified with intoxication, unspecified (principal); T42.4X1A Poisoning by benzodiazepines, accidental (unintentional), initial encounter; F41.9 Anxiety disorder, unspecified; F32.9 Major depressive disorder, single episode, unspecified; E03.9 Hypothyroidism, unspecified; F17.200 Nicotine dependence, unspecified, uncomplicated; Z90.710 Acquired absence of both cervix and uterus; Z98.51 Tubal ligation status; Z98.891 History of uterine scar from previous surgery; Z98.890 Other specified postprocedural states; Z79.899 Other long term (current) drug therapy

== ENCOUNTER → 2017-05-15 | Outpatient (CLI) | payer OTHER ==
[~2017-05-15] MED LIST changes: -ALPR1TAB3 PO; -LOSA50TA6 PO; +LSN/10125 PO; +OXYC-106 PO; +ZOLP10TA PO
--- NOTE | 2017-05-15 09:27 | DIAGNOSTIC IMAGING REPORT ---
GALLBLADDER-ABD LIMITED CLINICAL HISTORY: R10.13 Abdominal pain, [id number] pain. Nausea. TECHNIQUE: Ultrasound COMPARISON STUDY: November 19, 2005 FINDINGS: 5 mm gallbladder polyp. No shadowing gallstones. Gallbladder wall and biliary ductal system are normal. Common bile duct measures 4.5 mm. Mild fatty infiltration of liver. Pancreas and right kidney are unremarkable. IMPRESSION: 1. Fatty infiltration of liver. 2. Small gallbladder polyp. 3. Normal caliber bile duct. The above report was generated using voice recognition software. It may contain grammatical, syntax or spelling errors. Electronically signed by: Michael Josue M.D. 05/15/2017 9:26 AM Dictated Date/Time: 05/15/2017 9:25 AM
== END | disposition home or self-care (01) ==
LOC: C.ULTR 08:49
PROVIDERS: ATTEND Nurse Practitioner Adult Health
DX: K76.0 Fatty (change of) liver, not elsewhere classified (principal); K82.4 Cholesterolosis of gallbladder; R10.13 Epigastric pain

== ENCOUNTER → 2017-10-28 | Outpatient (CLI) | payer OTHER ==
[~2017-10-28] MED LIST changes: -OXYC-106 PO; +OXYC-594 PO
== END ==
LOC: C.RDSM 09:39
PROVIDERS: ATTEND Physical Medicine & Rehabilitation Sports Medicine
DX: S89.91XA Unspecified injury of right lower leg, initial encounter (principal); X58.XXXA Exposure to other specified factors, initial encounter